=== PATIENT | female | born 1980 | race Caucasian/White ===

== ENCOUNTER 2021-11-07 11:10 | Outpatient (CLI) | payer MEDICAID, SELFPAY ==
--- NOTE | 2021-11-07 11:18 | MM_ITS ---
WS: [id number] BILATERAL DIGITAL DIAGNOSTIC MAMMOGRAM MAMMOGRAPHY WITH CAD CLINICAL INFORMATION: LEFT BREAST PAIN COMPARISON: None. TECHNIQUE: Bilateral CC, MLO, and ML views. FINDINGS: Scattered fibroglandular densities bilaterally. Incidental intramammary lymph node upper outer left b reast. A few punctate calcifications about the left areola. Right breast is unremarkable. Ultrasound left breast in the area of concern is pending. ULTRASOUND BREAST LEFT TECHNIQUE: Ultrasound left breast focused area of concern. CLINICAL INFORMATION: LEFT BREAST PAIN COMPARISON: None. FINDINGS: Ultrasound left breast in the left axilla. Multiple normal-appearing lymph nodes are visualized in th e left axilla. Slightly prominent lymph node along the axillary tail measuring 9 x 9 x 6 mm may corre spond to the area of concern and likely corresponds to the intramammary lymph node seen on mammogram. Lymph nodes overall have a benign appearance with preserved fatty hilum and without significant corti erinn thickening. If persistent pain or clinical concern, ultrasound axillary tail could be repeated in 2-3 months to a ssess for change or ultrasound biopsy could be performed. Otherwise recommend return to annual screen ing mammography. MM/[place] [id number] IMPRESSION: BI-RADS: 2-Benign FOLLOW UP: See Report Recommend return to annual screening mammography.
== END 2021-11-07 11:11 | disposition home or self-care (01) ==
PROVIDERS: PCP Family Medicine; Visit Provider Pediatrics
DX: N64.4 Mastodynia (principal)
CPT/HCPCS: 76642; 77066

== ENCOUNTER 2023-09-27 16:03 | Emergency (ER) | payer MEDICAID, SELFPAY ==
[2023-09-27 16:08] VITALS: BP 212/114; PULSE 68; RESP 14; TEMP 36.7; O2SAT 97; BMI 47.0
--- NOTE | 2023-09-27 18:04 | CTR_ITS ---
PROCEDURE INFORMATION: Exam: CT Head Without Contrast Exam date and time: 09/27/2023 6:26 PM Age: 43 years old Clinical indication: Pain; Headache; Patient HX: C/O LOU with dizziness. Hypertensive on monitor. ; Additional info: Headache, dizziness, htn-uncontrolled TECHNIQUE: Imaging protocol: Computed tomography of the head without contrast. Radiation optimization: All CT scans at this facility use at least one of these dose optimization techniques: automated exposure control; mA and/or kV adjustment per patient size (includes targeted exams where dose is matched to clinical indication); or iterative reconstruction. REPORTING DATA: Count of CT and Cardiac NM exams in prior 12 months: This patient has received 0 known CTs and 0 known cardiac nuclear medicine studies in the 12 months prior to the current study. COMPARISON: No relevant prior studies available. RADIATION DOSE METRICS: Total DLP (mGy-cm): 1148.73 FINDINGS: Brain: No acute infarct. No hemorrhage. Unremarkable white matter for age. No mass effect. Cerebral ventricles: No ventriculomegaly. Paranasal sinuses: No significant inflammation. No fluid levels. Mastoid air cells: Visualized mastoid air cells are well aerated. Bones/joints: Unremarkable. No acute fracture. Soft tissues: Unremarkable. CT/CT head wo con* [id number] IMPRESSION: No acute intracranial abnormality.
--- NOTE | 2023-09-27 18:05 | ED_ITS ---
HPI - Headache General: Chief Complaint: Headache Stated Complaint: Head pain, high bp Time Seen by Provider: 09/27/23 17:52 History of Present Illness: 43-year-old female presents emergency department complaints of a headache. She states she has had headaches in the past but this headache is much worse than her previous headaches. She states she has had longstanding high blood pressure and has been taking blood pressure medication and had a blood pressure medication change on 09/24/2023. She states that she was taking Norvasc 5 mg twice a day and they have decreased that to 5 mg once a day and they have added losartan and hydrochlorothiazide combination medication. She states that the dose is 50 mg / 12.5 mg. She states her current headache is a throbbing 9 out of 10 headache to the frontal portion of her head. She denies known injury or trauma. She denies neck pain, blurred vision, or lightheaded feeling. Review of Systems General: Reports: 10 or more systems reviewed and unremarkable except in HPI and below Neuro: Reports: headache(s) Physical Exam Narrative: EXAM NARRATIVE: Constitutional: the patient appeared well nourished and normally developed. Vital signs as documented. HENMT: Head exam is unremarkable. , Neck is without jugular venous distension, thyromegaly, or carotid bruits. Carotid upstrokes are brisk bilaterally. Eye: No scleral icterus or corneal arcus noted. PERRLA, EOMI Resp: Lungs are clear to auscultation and percussion. Cardio: Cardiac exam reveals the PMI to be normally sized and situated. Rhythm is regular. First and second heart sounds normal. No murmurs, rubs or gallops. GI: Abdominal exam reveals normal bowel sounds, no masses, no organomegaly and no aortic enlargement. Soft, nontender to palpation. No obvious palpable masses noted. No hepatomegaly appreciated. Extremity: Extremities are non-edematous and both femoral and pedal pulses are normal. Moves all extremities well, she has sensation in all extremities. Neuro: Alert and oriented x4, person, place, time and situation. Cranial nerves II through XII are grossly intact, there is no focal neurological deficits that I can appreciate at present. Motor strength in the upper and lower extremities are equal and bilateral 5/5. Psych: Cooperative, calm, normal thought process, appropriate judgment. Skin: No lesions, rashes. Course Vital Signs: Vital signs: Vital Signs Temperature 98.1 F 09/27/23 16:08 Pulse Rate 92 09/27/23 19:04 Respiratory Rate 16 09/27/23 19:49 Blood Pressure 166/111 09/27/23 19:49 Pulse Oximetry 98 09/27/23 19:49 Oxygen Delivery Me thod Room Air 09/27/23 19:49 MDM - Headache Medical Decision Making Physical exam completed, laboratory examination to include a CBC and a CMP I will provide the patient IV access and IV antihypertensive medications. Given her change in her characteristic headaches and her uncontrolled hypertension I will obtain a CT scan of the head without contrast for additional evaluation. I had an extensive discussion with the patient regarding her medications as well as the expected duration of onset and we will provide her by mouth medications while in the emergency department in addition to IV antihypertensive meds. Lab Data I reviewed the patient's lab results. 09/27/23 18:05 09/27/23 18:[address] 09/27/23 18:04 IMPRESSION: No acute intracranial abnormality. Laboratory Results WBC 6.85 10^3/uL (3.29-11.43) 09/27/23 18:05 RBC 5.04 10^6/uL (3.85-5.65) 09/27/23 18:05 Hgb 14.90 g/dL (11.27-16.99) 09/27/23 18:05 Hct 46.5 % (36-47) 09/27/23 18:05 MCV 92.3 fl (85-98) 09/27/23 18:05 MCH 29.6 pg (27-33) 09/27/23 18:05 MCHC 32.0 g/dL (30-55) 09/27/23 18:05 RDW 12.2 % (12.1-15.1) 09/27/23 18:05 Plt Count 223 10^3/cmm (157-399) 09/27/23 18:05 MPV 11.3 fL (7.4-10.4) H 09/27/23 18:05 Neut % (Auto) 47.7 % 09/27/23 18:05 Lymph % (Auto) 41.0 % 09/27/23 18:05 [place] % (Auto) 8.8 % 09/27/23 18:05 Eos % (Auto) 2.0 % 09/27/23 18:05 Baso % (Auto) 0.4 % 09/27/23 18:05 Neut # (Auto) 3.26 10^3/uL (1.8-7.7) 09/27/23 18:05 Lymph # (Auto) 2.8 10^3/uL (0.8-4.8) 09/27/23 18:05 [place] # (Auto) 0.6 10^3/uL (0.2-0.9) 09/27/23 18:05 Eos # (Auto) 0.1 10^3/uL (0.0-0.8) 09/27/23 18:05 Baso # (Auto) 0.0 10^3/uL (0.0-0.1) 09/27/23 18:05 Nucleated RBC % (auto) 0 % 09/27/23 18:05 Nucleated RBCs # 0.0 /100WBC 09/27/23 18:05 Sodium 140 mmol/L (136-145) 09/27/23 18:05 Potassium 3.3 mmol/L (3.5-5.1) L 09/27/23 18:05 Chloride 101 mmol/L (98-107) 09/27/23 18:05 Carbon Dioxide 28 mmol/L (22-29) 09/27/23 18:05 Anion Gap 14.3 (5-19) 09/27/23 18:05 BUN 16 mg/dL (6-20) 09/27/23 18:05 Creatinine 0.7 mg/dL (0.5-0.9) 09/27/23 18:05 GFR Calculation 91.3 mL/min (90-130) 09/27/23 18:05 Glucose 97 mg/dL (65-115) 09/27/23 18:05 Calculated Osmolality 291 mOsm/kg (285-295) 09/27/23 18:05 Calcium 9.1 mg/dL (8.5-10.5) 09/27/23 18:05 Total Bilirubin 0.3 mg/dL (0.15-1.2) 09/27/23 18:05 AST 21 U/L (0-32) 09/27/23 18:05 ALT 20 U/L (0-33) 09/27/23 18:05 Alkaline Phosphatase 98 U/L (35-105) 09/27/23 18:05 Total Protein 7.1 g/dL (6.6-8.7) 09/27/23 18:05 Albumin 4.2 g/dL (3.5-5.2) 09/27/23 18:05 Globulin 2.9 g/dL (1.3-4.6) 09/27/23 18:05 All radiology interpretation(s) finalized by discharge ED provider radiology interpretation(s): FINDINGS: Brain: No acute infarct. No hemorrhage. Unremarkable white matter for age. No mass effect. Cerebral ventricles: No ventriculomegaly. Paranasal sinuses: No significant inflammation. No fluid levels. Mastoid air cells: Visualized mastoid air cells are well aerated. Bones/joints: Unremarkable. No acute fracture. Soft tissues: Unremarkable. CT/CT head wo con* [id number] IMPRESSION: No acute intracranial abnormality. Discharge Plan Discharge Patient Disposition: Home Clinical Impression: Hypertension, uncontrolled, Headache Condition: Stable Discharge Orders: Discharge ED (Routine); Ordered 09/27/23 Ordered By: Yovani Ellison Referrals: Piter Akbar MD [Primary Care Provider] - Discharge Diet: Low Salt Discharge Activity: Resume usual activity Patient Instructions: Opioid Safety, Pain Management Activity Restrictions/Additional Instructions: Activity Restrictions/Additional Instructions: Thank you for choosing [facility] for your healthcare needs today. Plea se realize that you were seen in the Emergency Department and that we are providing you with an emergency medical screening exam and this may not be complete and all inclusive of all the testing and or medical work-up that you may need to determine your ailment or severity of your illness. It is very important that you follow-up as instructed with your Primary care provider or Specialist for additional evaluation and to discuss your medical treatment plan. You may return to the Emergency Department should you have concerns or if your condition changes or worsens in any way. It is extremely important to continue taking your previously prescribed antihypertensive medications as recommended by your primary care provider. Coding Level of Care Code ED [employer] for [facility]
[2023-09-27 18:08] VITALS: BP 179/103; O2SAT 100
[2023-09-27] MEDS: hyDRALAzine 20 mg/mL INJ 1 mL 10 MG IVP (18:15)
[2023-09-27 18:31] LABS: Alanine Aminotransferase 20 U/L (0-33); Albumin Level 4.2 g/dL (3.5-5.2); Alkaline Phosphatase 98 U/L (35-105); Anion Gap 14.3 (5-19); Aspartate Amino Transferase 21 U/L (0-32); Blood Urea Nitrogen 16 mg/dL (6-20); Calcium 9.1 mg/dL (8.5-10.5); Carbon Dioxide 28 mmol/L (22-29); Chloride 101 mmol/L (98-107); Globulin 2.9 g/dL (1.3-4.6); Glomerular Filtration Rate 91.3 mL/min (90-130); Glucose 97 mg/dL (65-115); Osmolality Calculated 291 mOsm/kg (285-295); Potassium 3.3 mmol/L (3.5-5.1); Sodium 140 mmol/L (136-145); Total Bilirubin 0.3 mg/dL (0.15-1.2); Total Protein 7.1 g/dL (6.6-8.7)
[2023-09-27 18:36] LABS: Basophils % 0.4 %; Eosinophils # 0.1 10^3/uL (0.0-0.8); Hematocrit 46.5 % (36-47); Lymphocytes # 2.8 10^3/uL (0.8-4.8); Mean Corpuscular Hemoglobin 29.6 pg (27-33); Mean Corpuscular Volume 92.3 fl (85-98); Mean Platelet Volume 11.3 fL (7.4-10.4); Monocytes # 0.6 10^3/uL (0.2-0.9); Monocytes % 8.8 %; Neutrophils # 3.26 10^3/uL (1.8-7.7); Neutrophils % 47.7 %; Nucleated Red Blood Cells % 0 %; Platelet Count 223 10^3/cmm (157-399); Red Blood Count 5.04 10^6/uL (3.85-5.65); Red Cell Distribution Width 12.2 % (12.1-15.1); White Blood Count 6.85 10^3/uL (3.29-11.43)
[2023-09-27 18:44] VITALS: BP 163/117; O2SAT 98
[2023-09-27] MEDS: cloNIDine 0.1 mg Tablet 0.2 MG PO (19:03)
[2023-09-27 19:04] VITALS: BP 176/92; PULSE 92; RESP 18; O2SAT 99
[2023-09-27 19:49] VITALS: BP 166/111; RESP 16; O2SAT 98
[2023-09-27 20:17] VITALS: BP 141/96; PULSE 70; RESP 16; O2SAT 96
== END 2023-09-27 20:19 | disposition home or self-care (01) ==
PROVIDERS: Emergency Provider Internal Medicine; PCP Family Medicine
DX: R51.9 Headache, unspecified (principal); I10 Essential (primary) hypertension
CPT/HCPCS: 70450; 80053; 85025; 96374; 99285; J0360

== ENCOUNTER 2024-10-13 17:01 | Emergency (ER) | payer MEDICAID, SELFPAY ==
[2024-10-13] VITALS (11 sets, daily range): BP systolic 122–195; BP diastolic 66–107; PULSE 46–60; RESP 18; TEMP 36.4; O2SAT 92–98
--- NOTE | 2024-10-13 17:50 | ECG_ITS ---
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 Measurements Intervals [place] Rate: 49 P: 45 [place]: 145 QRS: 12 QRSD: 113 T: 34 QT: 460 QTc: 417 Interpretive Statements SINUS BRADYCARDIA INCOMPLETE RIGHT BUNDLE BRANCH BLOCK [90+ ms QRS DURATION, TERMINAL R IN V1/V2, 40+ ms S IN I/aVL/V4/V5/V6] No previous ECG available for comparison Electronically Signed On 10-13-2024 18:05:45 DRUGLESS PHYSICIAN by Nereyda Boyce M.D. [id number]
[2024-10-13] MEDS: cloNIDine 0.1 mg Tablet 0.2 MG PO (18:07)
--- NOTE | 2024-10-13 18:27 | ED_ITS ---
HPI - General Adult 2 General: Chief complaint: General Medical Stated complaint: high BP, foggy, headache Time Seen by Provider: 10/13/24 17:57 History of Present Illness: Patient presents to the ER with complaints of high blood pressure, ringing in her years. Patient does take blood medicine and she has taken it today. But her blood pressure continues to rise. Patient has no other complaints at this time. Patient also asked if we would check her A1c. Patient's blood pressure upon arrival was 189/107. Related Data Previous Rx's Medication Instructions Recorded clonidine HCl 0.1 mg tablet 0.1 mg PO QID PRN For blood 10/13/24 pressure greater than 160/90 #14 tabs Allergies Allergy/AdvReac Type Severity Reaction Status Date / Time No Known Allergies Allergy Verified 09/27/23 16:14 Review of Systems 2 General: Reports: 10 or more systems reviewed and unremarkable except in HPI and below Physical Exam 2 Const: COMMON NORMALS: no acute distress, average body habitus, patient oriented x3, no limitations, healthy appearing, alert and well nourished HENMT: COMMON NORMALS: normocephalic, atraumatic, hearing grossly normal bilaterally, external ears normal, Normal external nose present and moist oral mucous membranes HEAD & SCALP: normocephalic and atraumatic NOSE: Normal external nose present EXTERNAL EAR: Yes external ears normal Neck/C-Spine: COMMON NORMALS: no JVD Chest: COMMONS NORMALS: normal inspection of the chest and normal palpation of entire chest wall Resp: COMMON NORMALS: normal respiratory effort, No retractions, No use of accessory muscles and clear to auscultation bilaterally AUSCULTATION: clear to auscultation bilaterally Cardio: COMMON NORMALS: no JVD, regular rate, regular rhythm, S1 normal heart sound present, S2 normal heart sound present, No gallops present (Cardio), No clicks present (Cardio), No murmurs present (Cardio) and No rub (Cardio) R ATE: regular rate RHYTHM: regular rhythm HEART SOUNDS: S1 normal heart sound present and S2 normal heart sound present GI: COMMON NORMALS: Normal to inspection, nondistended, normoactive bowel sounds present, Soft to palpation, non-tender, No hepatosplenomegaly present and no masses PALPATION: Yes Soft to palpation and Yes No hepatosplenomegaly present Neuro: COMMON NORMALS: patient oriented x3 SENSORIUM/ORIENTATION: Yes alert Course 2 Vital Signs: Vital signs: Vital Signs Temperature 97.6 F 10/13/24 17:11 Pulse Rate 56 L 10/13/24 21:30 Respiratory Rate 18 10/13/24 17:11 Blood Pressure 130/66 10/13/24 21:30 Pulse Oximetry 95 10/13/24 21:30 Oxygen Delivery Me thod Room Air 10/13/24 21:30 MDM - General Adult Medical Decision Making Patient lab work to include CBC CMP A1c, all which was essentially normal and A1c was 5.2. Patient was given total of 0.3 mg clonidine which helped her blood pressure immensely. Patient be prescribed small dose to go home with to take on an as-needed basis. Medical Records I reviewed the patient's medical records. Lab Data I reviewed the patient's lab results. 10/13/24 19:59 10/13/24 18:14 Laboratory Results WBC 6.61 10^3/uL (3.29-11.43) 10/13/24 19:59 Corrected WBC Cancelled 10/13/24 18:14 RBC 5.15 10^6/uL (3.85-5.65) 10/13/24 19:59 Hgb 15.20 g/dL (11.27-16.99) 10/13/24 19:59 Hct 47.7 % (36-47) H 10/13/24 19:59 MCV 92.6 fl (85-98) 10/13/24 19:59 MCH 29.5 pg (27-33) 10/13/24 19:59 MCHC 31.9 g/dL (30-55) 10/13/24 19:59 RDW 12.1 % (12.1-15.1) 10/13/24 19:59 Plt Count 238 10^3/cmm (157-399) 10/13/24 19:59 MPV 10.5 fL (7.4-10.4) H 10/13/24 19:59 Gran % Cancelled 10/13/24 18:14 Neut % (Auto) 44.2 % 10/13/24 19:59 Lymph % (Auto) 45.8 % 10/13/24 19:59 [place] % (Auto) 7.4 % 10/13/24 19:59 Eos % (Auto) 2.1 % 10/13/24 19:59 Baso % (Auto) 0.3 % 10/13/24 19:59 Neut # (Auto) 2.92 10^3/uL (1.8-7.7) 10/13/24 19:59 Lymph # (Auto) 3.0 10^3/uL (0.8-4.8) 10/13/24 19:59 [place] # (Auto) 0.5 10^3/uL (0.2-0.9) 10/13/24 19:59 Eos # (Auto) 0.1 10^3/uL (0.0-0.8) 10/13/24 19:59 Baso # (Auto) 0.0 10^3/uL (0.0-0.1) 10/13/24 19:59 Absolute Gran (auto) Cancelled 10/13/24 18:14 Nucleated RBC % (auto) 0 % 10/13/24 19:59 Nucleated RBCs # 0.0 /100WBC 10/13/24 19:59 PT 12.20 SECONDS (12.1-14.9) 10/13/24 18:14 INR 0.88 (0.8-1.2) 10/13/24 18:14 Sodium 135 mmol/L (136-145) L 10/13/24 18:14 Potassium 3.7 mmol/L (3.5-5.1) 10/13/24 18:14 Chloride 99 mmol/L (98-107) 10/13/24 18:14 Carbon Dioxide 27 mmol/L (22-29) 10/13/24 18:14 Anion Gap 12.7 (5-19) 10/13/24 18:14 BUN 12 mg/dL (6-20) 10/13/24 18:14 Creatinine 0.6 mg/dL (0.5-0.9) 10/13/24 18:14 GFR Calculation 108.6 mL/min (90-130) 10/13/24 18:14 Glucose 90 mg/dL (65-115) 10/13/24 18:14 Estimat Average Glucose 103 10/13/24 19:59 Hemoglobin A1c 5.2 % (4.0-6.0) 10/13/24 19:59 Calculated Osmolality 279 mOsm/kg (285-295) L 10/13/24 18:14 Calcium 9.3 mg/dL (8.5-10.5) 10/13/24 18:14 Total Bilirubin 0.8 mg/dL (0.15-1.2) 10/13/24 18:14 AST 22 U/L (0-32) 10/13/24 18:14 ALT 18 U/L (0-33) 10/13/24 18:14 Alkaline Phosphatase 73 U/L (35-105) 10/13/24 18:14 Total Protein 7.6 g/dL (6.6-8.7) 10/13/24 18:14 Albumin 4.2 g/dL (3.5-5.2) 10/13/24 18:14 Globulin 3.4 g/dL (1.3-4.6) 10/13/24 18:14 All radiology interpretation(s) finalized by discharge Discharge Plan Discharge Patient Disposition: Home Clinical Impression: Hypertension Qualifiers: Hypertension type: unspecified Qualified Code(s): I10 - Essential (primary) hypertension Condition: Stable Prescriptions: New clonidine HCl 0.1 mg tablet 0.1 mg PO QID PRN (Reason: For blood pressure greater than 160/90) Qty: 14 0RF Discharge Orders: Discharge ED (Routine); Ordered 10/13/24 Ordered By: Dao Lima Referrals: Piter Akbar MD [Primary Care Provider] - 1 week Patient Instructions: Hypertension Activity Restrictions/Additional Instructions: A prescription for clonidine has been sent to your pharmacy. Please take it as directed. Please check your blood pressure often and keep a blood pressure log and take it to your next family practice appointment please make this within the next 7 days for further evaluation treatment. Coding Level of Care Code ED Telecommunications Line Mechanic for [facility]
[2024-10-13 18:48] LABS: INR 0.88 (0.8-1.2)
[2024-10-13 18:53] LABS: Alanine Aminotransferase 18 U/L (0-33); Albumin Level 4.2 g/dL (3.5-5.2); Alkaline Phosphatase 73 U/L (35-105); Anion Gap 12.7 (5-19); Aspartate Amino Transferase 22 U/L (0-32); Blood Urea Nitrogen 12 mg/dL (6-20); Calcium 9.3 mg/dL (8.5-10.5); Carbon Dioxide 27 mmol/L (22-29); Chloride 99 mmol/L (98-107); Creatinine Clr Calc Pharmacy 165.7734; Globulin 3.4 g/dL (1.3-4.6); Glomerular Filtration Rate 108.6 mL/min (90-130); Glucose 90 mg/dL (65-115); Osmolality Calculated 279 mOsm/kg (285-295); Potassium 3.7 mmol/L (3.5-5.1); Sodium 135 mmol/L (136-145); Total Bilirubin 0.8 mg/dL (0.15-1.2); Total Protein 7.6 g/dL (6.6-8.7)
[2024-10-13 20:12] LABS: Basophils % 0.3 %; Eosinophils # 0.1 10^3/uL (0.0-0.8); Eosinophils % 2.1 %; Hematocrit 47.7 % (36-47); Lymphocytes % 45.8 %; Mean Corpuscular HGB Conc 31.9 g/dL (30-55); Mean Corpuscular Hemoglobin 29.5 pg (27-33); Mean Corpuscular Volume 92.6 fl (85-98); Mean Platelet Volume 10.5 fL (7.4-10.4); Monocytes # 0.5 10^3/uL (0.2-0.9); Monocytes % 7.4 %; Neutrophils # 2.92 10^3/uL (1.8-7.7); Neutrophils % 44.2 %; Nucleated Red Blood Cells % 0 %; Platelet Count 238 10^3/cmm (157-399); Red Blood Count 5.15 10^6/uL (3.85-5.65); Red Cell Distribution Width 12.1 % (12.1-15.1); White Blood Count 6.61 10^3/uL (3.29-11.43)
[2024-10-13 22:04] LABS: Estmated Average Glucose 103; Hemoglobin A1C 5.2 % (4.0-6.0)
[2024-10-13] MEDS: cloNIDine 0.1 mg Tablet PO (22:21)
== END 2024-10-13 22:25 | disposition home or self-care (01) ==
PROVIDERS: Emergency Medicine; Emergency Provider Emergency Medicine; PCP Family Medicine
DX: I10 Essential (primary) hypertension (principal)
CPT/HCPCS: 36415; 80053; 83036; 85025; 85610; 93005; 99284

== ENCOUNTER 2024-10-27 18:44 | Emergency (ER) | payer MEDICAID, SELFPAY ==
[2024-10-27 18:47] VITALS: BP 160/102; PULSE 71; RESP 18; TEMP 36.7; O2SAT 98; BMI 44.1
--- NOTE | 2024-10-27 18:54 | XRR_ITS ---
PROCEDURE INFORMATION: Exam: XR Chest Exam date and time: 10/27/2024 7:44 PM Age: 44 years old Clinical indication: Shortness of breath; Additional info: SOA TECHNIQUE: Imaging protocol: Radiologic exam of the chest. Views: 1 view. COMPARISON: No relevant prior studies available. FINDINGS: Lungs: Unremarkable. No consolidation. Pleural spaces: Unremarkable. No pleural effusion. No pneumothorax. Heart/Mediastinum: Unremarkable. No cardiomegaly. Bones/joints: Unremarkable. XR/XR chest 1V [id number] IMPRESSION: No acute findings.
--- NOTE | 2024-10-27 20:02 | ECG_ITS ---
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 Measurements Intervals [place] Rate: 65 P: 57 [place]: 154 QRS: 31 QRSD: 101 T: 40 QT: 429 QTc: 447 Interpretive Statements SINUS RHYTHM POSSIBLE LEFT ATRIAL ENLARGEMENT [-0.1mV P-WAVE IN V1/V2] POSSIBLE RIGHT VENTRICULAR CONDUCTION DELAY [RSR (QR) IN V1/V2] Compared to ECG 10/13/2024 18:00:57 Sinus bradycardia no longer present Incomplete right bundle-branch block no longer present Electronically Signed On 10-28-2024 14:43:36 HEALTH SCREENER by Alexandro Josue M.D. [id number]
--- NOTE | 2024-10-27 20:05 | ED_ITS ---
HPI - Allergic Reaction 2 General: Chief complaint: Allergic Reaction Stated complaint: SOB Time Seen by Provider: 10/27/24 19:44 Source: patient Mode of arrival: ambulatory Limitations: no limitations History of Present Illness: HPI narrative: 44-year-old female who states that she s tarted taking a new blood pressure medicine this morning nifedipine states after taking it she felt like it was affecting her she states that she had felt like she had a hard time breathing especially when she was trying to sleep she denies any chest pain she is in no distress here pulse ox normal she is speaking in full sentences. Denies any rash Associated symptoms: Deny abdominal pain, nausea or vomiting Related Data Previous Rx's Medication Instructions Recorded clonidine HCl 0.1 mg tablet 0.1 mg PO QID PRN For blood 10/13/24 pressure greater than 160/90 #14 tabs Allergies Allergy/AdvReac Type Severity Reaction Status Date / Time No Known Allergies Allergy Verified 09/27/23 16:14 Review of Systems 2 Const: Denies: fever(s), chills, body aches or change in appetite ENMT: Denies: throat pain or dental pain Card: Denies: chest pain Resp: Reports: dyspnea GI: Denies: abdominal pain, nausea, vomiting or diarrhea Musc: Denies: neck pain or back pain Skin/Breast: Denies: rash Neuro: Denies: headache(s) Physical Exam 2 Const: COMMON NORMALS: no acute distress, patient oriented x3 and healthy appearing HENMT: COMMON NORMALS: normocephalic and atraumatic HEAD & SCALP: n ormocephalic and atraumatic Eye: COMMON NORMALS: conjunctivae normal CONJUNCTIVA: Yes conjunctivae normal Neck/C-Spine: COMMON NORMALS: full ROM and supple Chest: COMMONS NORMALS: normal inspection of the chest and normal palpation of entire chest wall Resp: COMMON NORMALS: normal respiratory effort, No retractions, No use of accessory muscles and clear to auscultation bilaterally AUSCULTATION: clear to auscultation bilaterally Cardio: COMMON NORMALS: regular rate, regular rhythm and No murmurs present (Cardio) RATE: regular rate RHYTHM: regular rhythm Extremity: COMMON NORMALS: normal to inspection and full ROM Neuro: COMMON NORMALS: patient oriented x3, moves all extremities and no focal motor deficits Psych: COMMON NORMALS: mental status grossly normal, Normal thought process present and cooperative THOUGHT PROCESS: Normal thought process present Skin: COMMON NORMALS: no rashes or lesions noted and no wounds GENERAL SKIN EXAM: no rashes or lesions noted Course 2 Vital Signs: Vital signs: Vital Signs Temperature 98.1 F 10/27/24 18:47 Pulse Rate 72 10/27/24 20:21 Respiratory Rate 18 10/27/24 18:47 Blood Pressure 149/92 10/27/24 20:21 Pulse Oximetry 94 10/27/24 20:21 Oxygen Delivery Me thod Room Air 10/27/24 18:47 MDM - Allergic Reaction Medical Decision Making Patient presents for some shortness of breath throughout the day she has been in no distress here x-ray EKG is normal she has no signs of any cardiac cause she has no signs of pulmonary embolism she is stable for discharge she is follow-up with PCP she is return if worsening she understands agrees to plan. Medical Records I reviewed the patient's medical records. Lab Data I reviewed the patient's lab results. 10/27/24 20:15 10/27/24 20:15 Radiology Impressions Chest X-Ray 10/27/24 18:54 IMPRESSION: No acute findings. Laboratory Results WBC 5.80 10^3/uL (3.29-11.43) 10/27/24 20:15 RBC 4.93 10^6/uL (3.85-5.65) 10/27/24 20:15 Hgb 14.80 g/dL (11.27-16.99) 10/27/24 20:15 Hct 45.7 % (36-47) 10/27/24 20:15 MCV 92.7 fl (85-98) 10/27/24 20:15 MCH 30.0 pg (27-33) 10/27/24 20:15 MCHC 32.4 g/dL (30-55) 10/27/24 20:15 RDW 12.2 % (12.1-15.1) 10/27/24 20:15 Plt Count 202 10^3/cmm (157-399) 10/27/24 20:15 MPV 11.1 fL (7.4-10.4) H 10/27/24 20:15 Neut % (Auto) 46.0 % 10/27/24 20:15 Lymph % (Auto) 42.8 % 10/27/24 20:15 [place] % (Auto) 8.3 % 10/27/24 20:15 Eos % (Auto) 2.2 % 10/27/24 20:15 Baso % (Auto) 0.5 % 10/27/24 20:15 Neut # (Auto) 2.67 10^3/uL (1.8-7.7) 10/27/24 20:15 Lymph # (Auto) 2.5 10^3/uL (0.8-4.8) 10/27/24 20:15 [place] # (Auto) 0.5 10^3/uL (0.2-0.9) 10/27/24 20:15 Eos # (Auto) 0.1 10^3/uL (0.0-0.8) 10/27/24 20:15 Baso # (Auto) 0.0 10^3/uL (0.0-0.1) 10/27/24 20:15 Nucleated RBC % (auto) 0 % 10/27/24 20:15 Nucleated RBCs # 0.0 /100WBC 10/27/24 20:15 Sodium 142 mmol/L (136-145) 10/27/24 20:15 Potassium 3.8 mmol/L (3.5-5.1) 10/27/24 20:15 Chloride 104 mmol/L (98-107) 10/27/24 20:15 Carbon Dioxide 29 mmol/L (22-29) 10/27/24 20:15 Anion Gap 12.8 (5-19) 10/27/24 20:15 BUN 23 mg/dL (6-20) H 10/27/24 20:15 Creatinine 0.9 mg/dL (0.5-0.9) 10/27/24 20:15 GFR Calculation 68.0 mL/min (90-130) L 10/27/24 20:15 Glucose 93 mg/dL (65-115) 10/27/24 20:15 Calculated Osmolality 297 mOsm/kg (285-295) H 10/27/24 20:15 Calcium 8.5 mg/dL (8.5-10.5) 10/27/24 20:15 NT-Pro-B Natriuret Pep 126 pg/mL (0-125) H 10/27/24 20:15 All radiology interpretation(s) finalized by discharge EKG Data EKG 1: I personally reviewed and interpreted this EKG as follows: EKG interpretation date: 10/27/24 EKG interpretation time: 20:08 Interpretation: nsr hr [address] elevation qrs 101 qtc 440 Discharge Plan Discharge Patient Disposition: Home Clinical Impression: Dyspnea Condition: Stable Prescriptions: No Action clonidine HCl 0.1 mg tablet 0.1 mg PO QID PRN (Reason: For blood pressure greater than 160/90) Qty: 14 0RF Discharge Orders: Discharge ED (Routine); Ordered 10/27/24 Ordered By: Hilario Mueller Referrals: Piter Akbar MD [Primary Care Provider] - Discharge Diet: Advance as tolerated Discharge Activity: Resume usual activity Patient Instructions: Dyspnea (ED) Coding Level of Care Code ED Media Marketing Coordinator for [facility]
[2024-10-27 20:21] VITALS: BP 149/92; PULSE 72; O2SAT 94
[2024-10-27 20:22] LABS: Basophils % 0.5 %; Eosinophils # 0.1 10^3/uL (0.0-0.8); Eosinophils % 2.2 %; Hematocrit 45.7 % (36-47); Lymphocytes # 2.5 10^3/uL (0.8-4.8); Lymphocytes % 42.8 %; Mean Corpuscular HGB Conc 32.4 g/dL (30-55); Mean Corpuscular Volume 92.7 fl (85-98); Mean Platelet Volume 11.1 fL (7.4-10.4); Monocytes # 0.5 10^3/uL (0.2-0.9); Monocytes % 8.3 %; Neutrophils # 2.67 10^3/uL (1.8-7.7); Nucleated Red Blood Cells % 0 %; Platelet Count 202 10^3/cmm (157-399); Red Blood Count 4.93 10^6/uL (3.85-5.65); Red Cell Distribution Width 12.2 % (12.1-15.1)
[2024-10-27 20:30] VITALS: BP 145/97; PULSE 89; O2SAT 96
[2024-10-27 20:47] LABS: Anion Gap 12.8 (5-19); Blood Urea Nitrogen 23 mg/dL (6-20); Calcium 8.5 mg/dL (8.5-10.5); Carbon Dioxide 29 mmol/L (22-29); Chloride 104 mmol/L (98-107); Creatinine Clr Calc Pharmacy 110.9725; Glucose 93 mg/dL (65-115); NT Pro B Type Natriuretic Pept 126 pg/mL (0-125); Osmolality Calculated 297 mOsm/kg (285-295); Potassium 3.8 mmol/L (3.5-5.1); Sodium 142 mmol/L (136-145)
[2024-10-27 21:00] VITALS: BP 142/76; PULSE 71; O2SAT 94
[2024-10-27 21:27] VITALS: BP 148/89; PULSE 74; O2SAT 96
== END 2024-10-27 21:20 | disposition home or self-care (01) ==
PROVIDERS: Emergency Provider Emergency Medicine; PCP Family Medicine
DX: R06.00 Dyspnea, unspecified (principal)
CPT/HCPCS: 36415; 71045; 80048; 83880; 85025; 93005; 99285

== ENCOUNTER 2025-02-08 01:17 | Emergency (ER) | payer MEDICAID, SELFPAY ==
[2025-02-08 01:26] VITALS: BP 182/105; PULSE 65; RESP 19; TEMP 36.5; O2SAT 96; BMI 42.3
--- NOTE | 2025-02-08 01:28 | ECG_ITS ---
[facility]: 2025-02-08 Pat Name: Jacqueline Dodson Department: Room: Gender: Female Food Service Representative: : 1980 Requested By: Heather Dimas Order Number: [id number] Surendra MD: Nereyda Boyce M.D. Measurements Intervals [place] Rate: 54 P: 12 NE: 151 QRS: 2 QRSD: 106 T: 3 QT: 436 QTc: 415 Interpretive Statements SINUS BRADYCARDIA POSSIBLE RIGHT VENTRICULAR CONDUCTION DELAY [RSR (QR) IN V1/V2] Compared to ECG 10/27/2024 20:08:13 Sinus rhythm no longer present Electronically Signed On 02-08-2025 19:19:45 CDT by Nereyda Boyce M.D. [email or web address]
--- NOTE | 2025-02-08 01:28 | XRR_ITS ---
PROCEDURE INFORMATION: Exam: XR Chest Exam date and time: 02/08/2025 1:56 AM Age: 44 years old Clinical indication: Other: HTN; Additional info: Hypertension TECHNIQUE: Imaging protocol: Radiologic exam of the chest. Views: 1 view. COMPARISON: CR XR chest 1V [id number] 10/27/2024 7:44 PM FINDINGS: Lungs: Unremarkable. No consolidation. Pleural spaces: Unremarkable. No pleural effusion. No pneumothorax. Heart/Mediastinum: Unremarkable. No cardiomegaly. Bones/joints: Unremarkable. XR/XR chest 1V portable [id number] IMPRESSION: No acute findings.
--- NOTE | 2025-02-08 01:37 | ED_ITS ---
HPI - Headache 2 General: Chief Complaint: Headache Stated Complaint: Blood Pressure High Time Seen by Provider: 02/08/25 01:25 History of Present Illness: 44-year-old female who presents emergenc y room with hypertension and headache. She says she had a headache so she checked her blood pressure and it was elevated at home. Says systolic was over 200 and her diastolic was 140. She took 2 clonidine. She apparently takes clonidine daily and today saw her primary who increased her blood pressure medications dosages. No chest pain. No focal motor deficits. No altered mental status. No nausea or vomiting. Related Data Previous Rx's ?Medication ?Instructions ?Recorded clonidine HCl 0.1 mg tablet 0.1 mg PO QID PRN For bloo d 10/13/24 pressure greater than 160/90 #14 tabs Allergies Allergy/AdvReac Type Severity Reaction Status Date / Time No Known Allergies Allergy Verified 09/27/23 16:14 Review of Systems 2 Narrative: Constitutional symptoms: Negative except as documented in HPI. Skin symptoms: Negative except as documented in HPI. Eye symptoms: Negative except as documented in HPI. ENMT symptoms: Negative except as documented in HPI. Respiratory symptoms: Negative except as documented in HPI. Cardiovascular symptoms: Negative except as documented in HPI. Gastrointestinal symptoms: Negative except as documented in HPI. Genitourinary symptoms: Negative except as documented in HPI. Musculoskeletal symptoms: Negative except as documented in HPI. Neurologic symptoms: Negative except as documented in HPI. Psychiatric symptoms: Negative except as documented in HPI. Endocrine symptoms: Negative except as documented in HPI. Physical Exam 2 Narrative: EXAM NARRATIVE: General: Alert, no acute distress. Skin: Warm, dry. Head: Normocephalic, atraumatic. Neck: Supple, trachea midline. Eye: Extraocular movements are intact. Ears, nose, mouth and throat: mucosa moist. Cardiovascular: Regular, Normal peripheral perfusion. Respiratory: Lungs are clear to auscultation, respirations are non-labored, breath sounds are equal, Symmetrical chest wall expansion. Gastrointestinal: Soft, Nontender, Non distended Musculoskeletal: Normal ROM, no deformity. Neurological: Alert and oriented, No focal neurological deficit observed. Psychiatric: Cooperative, appropriate mood & affect. Course 2 Vital Signs: Vital signs: Vital Signs Temperature 97.7 F 02/08/25 01:26 Pulse Rate 63 02/08/25 02:32 Respiratory Rate 17 02/08/25 02:32 Blood Pressure 122/69 02/08/25 02:32 Pulse Oximetry 97 02/08/25 02:32 Oxygen Delivery Me thod Room Air 02/08/25 01:26 MDM - Headache Medical Decision Making Medical decision making: Differential diagnosis including but not limited to and based on the above HPI, review of systems and physical exam: Patient presents with hypertension: Essential hypertension. Stroke. acute coronary syndrome. kidney failure. congestive heart failure. anxiety Orders placed to evaluate differential diagnosis based on the above differential, HPI and physical exam EKG: Time 1:24 AM. Rate 54. Sinus bradycardia, No ST-T changes, no ectopy, normal MD & QRS intervals, This was reviewed and interpreted by myself the ER physician at 1:28 AM Lab Review: Laboratory results were reviewed and interpreted by myself the emergency room physician. No leukocytosis. No anemia. No renal failure. Assessment and plan: Accelerated hypertension ?IV hydralazine with a considerable improvement in her blood pressure. - Discharged home - Discussed plan with patient. Answered any questions. - Evaluation and treatment of this problem were appropriate in the emergency setting. Lab Data 02/08/25 01:36 02/08/25 01:36 Radiology Impressions Chest X-Ray 02/08/25 01:28 IMPRESSION: No acute findings. Laboratory Results WBC 5.21 10^3/uL (3.29-11.43) 02/08/25 01:36 RBC 4.71 10^6/uL (3.85-5.65) 02/08/25 01:36 Hgb 13.90 g/dL (11.27-16.99) 02/08/25 01:36 Hct 43.4 % (36-47) 02/08/25 01:36 MCV 92.1 fl (85-98) 02/08/25 01:36 MCH 29.5 pg (27-33) 02/08/25 01:36 MCHC 32.0 g/dL (30-55) 02/08/25 01:36 RDW 12.2 % (12.1-15.1) 02/08/25 01:36 Plt Count 225 10^3/cmm (157-399) 02/08/25 01:36 MPV 10.8 fL (7.4-10.4) H 02/08/25 01:36 Neut % (Auto) 52.0 % 02/08/25 01:36 Lymph % (Auto) 37.8 % 02/08/25 01:36 [place] % (Auto) 8.1 % 02/08/25 01:36 Eos % (Auto) 1.7 % 02/08/25 01:36 Baso % (Auto) 0.2 % 02/08/25 01:36 Neut # (Auto) 2.71 10^3/uL (1.8-7.7) 02/08/25 01:36 Lymph # (Auto) 2.0 10^3/uL (0.8-4.8) 02/08/25 01:36 [place] # (Auto) 0.4 10^3/uL (0.2-0.9) 02/08/25 01:36 Eos # (Auto) 0.1 10^3/uL (0.0-0.8) 02/08/25 01:36 Baso # (Auto) 0.0 10^3/uL (0.0-0.1) 02/08/25 01:36 Nucleated RBC % (auto) 0 % 02/08/25 01:36 Nucleated RBCs # 0.0 /100WBC 02/08/25 01:36 Sodium 139 mmol/L (136-145) 02/08/25 01:36 Potassium 4.2 mmol/L (3.5-5.1) 02/08/25 01:36 Chloride 103 mmol/L (98-107) 02/08/25 01:36 Carbon Dioxide 26 mmol/L (22-29) 02/08/25 01:36 Anion Gap 14.2 (5-19) 02/08/25 01:36 BUN 18 mg/dL (6-20) 02/08/25 01:36 Creatinine 0.8 mg/dL (0.5-0.9) 02/08/25 01:36 GFR Calculation 77.9 mL/min (90-130) L 02/08/25 01:36 Glucose 123 mg/dL (65-115) H 02/08/25 01:36 Calculated Osmolality 291 mOsm/kg (285-295) 02/08/25 01:36 Calcium 8.8 mg/dL (8.5-10.5) 02/08/25 01:36 Total Bilirubin 0.2 mg/dL (0.15-1.2) 02/08/25 01:36 AST 15 U/L (0-32) 02/08/25 01:36 ALT 14 U/L (0-33) 02/08/25 01:36 Alkaline Phosphatase 74 U/L (35-105) 02/08/25 01:36 Troponin T Baseline 10 ng/L (0-10) 02/08/25 01:36 NT-Pro-B Natriuret Pep 95 pg/mL (0-125) 02/08/25 01:36 Total Protein 6.6 g/dL (6.6-8.7) 02/08/25 01:36 Albumin 4.0 g/dL (3.5-5.2) 02/08/25 01:36 Globulin 2.6 g/dL (1.3-4.6) 02/08/25 01:36 All radiology interpretation(s) finalized by discharge Discharge Plan Discharge Patient Disposition: Home Clinical Impression: Accelerated hypertension, Headache Condition: Stable Prescriptions: No Action clonidine HCl 0.1 mg tablet 0.1 mg PO QID PRN (Reason: For blood pressure greater than 160/90) Qty: 14 0RF Discharge Orders: Discharge ED (Routine); Ordered 02/08/25 Ordered By: Heather Alfonso Referrals: Piter Akbar MD [Primary Care Provider] - Discharge Diet: Usual diet Discharge Activity: Increase activity as tolerated Patient Instructions: Hypertension (ED), Opioid Safety, Pain Management Activity Restrictions/Additional Instructions: Thank you for choosing [facility] for your healthcare needs today. Please realize this is an emergency room and that we are providing you with a medical screening exam and this may not be complete and all inclusive of all the testing and or work up that you may need to determine your ailment or severity of your illness. You have been screened and evaluated and felt safe for discharge. Health conditions do change or evolve sometimes and as such it is important that you follow up with your Primary Doctor to be re checked, 3-5 days is a general good time frame for follow up. You are always welcome to return to the ED for re assessment if your symptoms are worsening or you have new concerns Print Language: Guatemalan Coding Level of Care Code ED Net Lead Developer for [facility]
[2025-02-08] MEDS: hyDRALAzine 20 mg/mL INJ 1 mL IVP (01:41)
[2025-02-08 01:45] LABS: Basophils % 0.2 %; Eosinophils # 0.1 10^3/uL (0.0-0.8); Eosinophils % 1.7 %; Hematocrit 43.4 % (36-47); Lymphocytes % 37.8 %; Mean Corpuscular Hemoglobin 29.5 pg (27-33); Mean Corpuscular Volume 92.1 fl (85-98); Mean Platelet Volume 10.8 fL (7.4-10.4); Monocytes # 0.4 10^3/uL (0.2-0.9); Monocytes % 8.1 %; Neutrophils # 2.71 10^3/uL (1.8-7.7); Nucleated Red Blood Cells % 0 %; Platelet Count 225 10^3/cmm (157-399); Red Blood Count 4.71 10^6/uL (3.85-5.65); Red Cell Distribution Width 12.2 % (12.1-15.1); White Blood Count 5.21 10^3/uL (3.29-11.43)
[2025-02-08 02:04] VITALS: BP 137/70; PULSE 60; RESP 16; O2SAT 95
[2025-02-08 02:07] LABS: Troponin(5th) Baseline 10 ng/L (0-10)
[2025-02-08 02:12] LABS: Alanine Aminotransferase 14 U/L (0-33); Alkaline Phosphatase 74 U/L (35-105); Anion Gap 14.2 (5-19); Aspartate Amino Transferase 15 U/L (0-32); Blood Urea Nitrogen 18 mg/dL (6-20); Calcium 8.8 mg/dL (8.5-10.5); Carbon Dioxide 26 mmol/L (22-29); Chloride 103 mmol/L (98-107); Creatinine Clr Calc Pharmacy 121.7597; Globulin 2.6 g/dL (1.3-4.6); Glomerular Filtration Rate 77.9 mL/min (90-130); Glucose 123 mg/dL (65-115); Osmolality Calculated 291 mOsm/kg (285-295); Potassium 4.2 mmol/L (3.5-5.1); Sodium 139 mmol/L (136-145); Total Bilirubin 0.2 mg/dL (0.15-1.2); Total Protein 6.6 g/dL (6.6-8.7)
[2025-02-08 02:16] LABS: NT Pro B Type Natriuretic Pept 95 pg/mL (0-125)
[2025-02-08 02:32] VITALS: BP 122/69; PULSE 63; RESP 17; O2SAT 97
== END 2025-02-08 02:33 | disposition home or self-care (01) ==
PROVIDERS: Emergency Provider Emergency Medicine; PCP Family Medicine
DX: I10 Essential (primary) hypertension (principal); R51.9 Headache, unspecified
CPT/HCPCS: 36415; 71045; 80053; 83880; 84484; 85025; 93005; 96374; 99285; J0360